=== PATIENT | male | born 1990 | race Two or more races ===

== ENCOUNTER 2017-04-05 00:58 | Emergency (ER) | payer SELFPAY ==
[~2017-04-05] VITALS: Ht 165.1 cm; Wt 63.5 kg
[2017-04-05] MEDS ORDERED: SODIUM CHLORIDE 0.9% 1,000 ML IV ONE ×2 (01:15→02:15)
[2017-04-05 01:36] VITALS: BP 100/64
[2017-04-05 01:40] LABS: Basophils # (auto) 0.1 uL; Basophils % (auto) 2.3 % (0.0-2.0); Eosinophils # (auto) 0.2 uL; Eosinophils % (auto) 4.4 % (0.0-7.0); Hematocrit 41.5 % (41.0-53.0); Hemoglobin 14.1 g/dL (13.5-17.5); Lymphocytes # (auto) 2.1 uL; Lymphocytes % (auto) 43.9 % (10.0-50.0); Mean Corpuscular Hemoglobin 30.2 pg (28.0-32.0); Mean Corpuscular Volume 88.7 fL (80.0-100.0); Mean Platelet Volume 8.3 fL (6.9-10.8); Monocytes # (auto) 0.3 uL; Monocytes % (auto) 7.3 % (0.0-12.0); Neutrophils % (auto) 42.1 % (37.0-80.0); Platelet Count (auto) 269 10^3/uL (140-450); Red Cell Distribution Width 13.5 % (11.8-14.3); White Blood Cell 4.7 10^3/uL (4.4-10.8)
[2017-04-05 01:55] LABS: Albumin 4.1 g/dL (3.4-5.0); Calcium 7.8 mg/dL (8.5-10.1); Potassium 3.4 mmol/L (3.5-5.1)
[2017-04-05 01:57] LABS: Acetaminophen < 2.0 ug/mL (10-30); Salicylate < 1.7 mg/dL (2.8-20.0)
[2017-04-05 01:58] LABS: Bilirubin, Total 0.4 mg/dL (0.2-1.0); Total Protein 6.8 g/dL (6.4-8.2)
[2017-04-05] MEDS ORDERED: THIAMINE INJ 100 MG, MULTIPLE VITAMIN 10 ML, FOLIC ACID 1 MG, MAGNESIUM SULF SDV 50% 8 ... IV STA ×5 (01:58)
[2017-04-05] MEDS ORDERED: THIAMINE HCL 100 MG/ML 2ML VIAL ONE (02:03)
[2017-04-05] MEDS ORDERED: THIAMINE HCL 100 MG/ML 2ML VIAL IV ONE (02:15)
== END 2017-04-05 03:04 | disposition home or self-care (01) ==
LOC: ER 01:06
DX: G92 Toxic encephalopathy (principal); R40.4 Transient alteration of awareness; F10.120 Alcohol abuse with intoxication, uncomplicated
CPT/HCPCS: 36415; 80053; 80320; 80329; 85025; 94761; 96360; 99284; J3411; J3475; J7030